=== PATIENT | female | born 1970 | race Caucasian/White ===

== ENCOUNTER 2017-07-15 08:13 | Day surgery (SDC) | payer BC ==
[~2017-07-15] VITALS: Ht 167.6 cm; Wt 64.9 kg
[~2017-07-15 08:13] MED LIST: BUPR10TASR PO; CAMRTAB2 PO; TRAZ50TA11 PO
[2017-07-15] MEDS ORDERED: LR 1,000 ML IV ONE (08:30)
[2017-07-15 08:52] LABS: MEAN CORPUSCULAR HEMOGLOBIN 32.7 pg (27.0-33.0); MEAN CORPUSCULAR HGB CONC 34.3 g/dl (32.0-36.5); MEAN CORPUSCULAR VOLUME 95.5 fl (80.0-96.0); PLATELET COUNT, AUTOMATED 251 10^3/uL (150-450); RED CELL DISTRIBUTION WIDTH 11.5 % (11.5-14.5); WHITE BLOOD COUNT 6.1 10^3/uL (4.0-10.0)
[2017-07-15] MEDS ORDERED: ACETAMINOPHEN 650 MG SUPP PR ONE (09:00)
[2017-07-15 09:07] LABS: CONTROL LINE HCG INT CTR LINE PRESENT
[2017-07-15] MEDS ORDERED: MORPHINE 2 MG/ML 1ML SYRINGE As Ordered ONE (10:06)
[2017-07-15] MEDS ORDERED: MORPHINE 2 MG/ML 1ML SYRINGE IV ONE (10:15)
[2017-07-15] MEDS ORDERED: ACETAMINOPHEN 650 MG SUPP As Ordered ONE (11:15)
[2017-07-15] MEDS ORDERED: BUPIVACAINE/EPIN 0.5% 30 ML VIAL As Ordered ONE (11:15)
[2017-07-15] MEDS ORDERED: PERC5TAB12 PO (11:19)
[2017-07-15] MEDS ORDERED: GLYCOPYRROLATE INJ 0.2 MG/ML 2 ML VIAL As Ordered ONE (11:49)
[2017-07-15] MEDS ORDERED: NEOSTIGMINE 10 MG/10 ML VIAL (J2710) As Ordered ONE (11:49)
[2017-07-15] MEDS ORDERED: PROPOFOL 200 MG/20 ML VIAL As Ordered ONE (11:49)
[2017-07-15] MEDS ORDERED: MIDAZOLAM INJ 2 MG/2 ML VIAL (J2250) As Ordered ONE (11:49)
[2017-07-15] MEDS ORDERED: fentaNYL 250 MCG/5 ML INJECTION (J3010) As Ordered ONE (11:49)
[2017-07-15] MEDS ORDERED: LIDOCAINE 2% INJ 100 MG/5 ML SDV (FOR ANES.) As Ordered ONE (11:49)
[2017-07-15] MEDS ORDERED: dexameTHASONE 4 MG/ML 1ML VIAL (J1100) As Ordered ONE (11:49)
[2017-07-15] MEDS ORDERED: ONDANSETRON 4MG/2ML VIAL (J2405) As Ordered ONE (11:50)
[2017-07-15] MEDS ORDERED: IBUPROFEN 800 MG TAB PO SCH (12:00)
[2017-07-15] MEDS ORDERED: ceFAZolin 1GM INJ (J0690) As Ordered ONE (12:13)
[2017-07-15] MEDS: PERCOCET 5MG/325MG TAB PO PRN ×2 (12:35→13:09)
[2017-07-15] MEDS ORDERED: PERCOCET 5MG/325MG TAB As Ordered ONE ×2 (12:35→13:02)
[2017-07-15] MEDS ORDERED: ONDANSETRON 4MG/2ML VIAL (J2405) IV PRN (13:15)
[2017-07-15] MEDS ORDERED: fentaNYL 100 MCG/2 ML INJECTION (J3010) IV PRN (13:15)
[2017-07-15] MEDS ORDERED: MEPERIDINE INJ 25 MG/ML VIAL (J2175) IV PRN (13:15)
[2017-07-15] MEDS ORDERED: METOCLOPRAMIDE INJ 10MG/2ML VIAL (J2765) IV PRN (13:15)
[2017-07-15] MEDS ORDERED: LR 1,000 ML IV SCH (13:15)
--- NOTE | 2017-07-15 14:08 | RO ---
DATE OF PROCEDURE: 07/15/2017 Dee is a 47-year-old female who had an extensive history of menometrorrhagia and multiparity, desires permanent tubal sterilization. After counseling in the office a decision was made for dilatation and curettage hysteroscopy, NovaSure ablation and endometrial ablation. PREOPERATIVE DIAGNOSES: 1. Multiparity, desires permanent tubal sterilization. 2. Menometrorrhagia. POSTOPERATIVE DIAGNOSES 1. Multiparity, desires permanent tubal sterilization. 2. Menometrorrhagia. PROCEDURE: 1. Laparoscopic bilateral tubal ligation using Filshie clip. 2. Dilatation and curettage hysteroscopy. 3. NovaSure endometrial ablation. SURGEON: Eduardo Lipscomb DO CHANCELLOR: ANESTHESIA: General. COMPLICATIONS: None. ESTIMATED BLOOD LOSS: Less than 20 mL. SPECIMEN SENT TO LAB: Endometrial curetting. PROCEDURE: After obtaining informed consent the patient was taken to the operating room where general anesthetic was found to be adequate. She was then draped and prepped usual sterile fashion in dorsal lithotomy position. At this point, a straight cath of the bladder was performed for approximately 250 mL of clear urine. We then placed a sponge stick in the vagina. Attention was then turned to the abdomen where a 5 mm infraumbilical incision was made. Using the Veress needle, the abdomen was insufflated with CO2 gas to approximately 3.5 liters. We then placed a 5 mm XCEL trocar as well as the laparoscope. After proper placement of that trocar, we then placed an 8 mm port under direct visualization on the right. The fallopian tubes were identified. The patient was placed in steep Trendelenburg and a Filshie clip was then applied approximately 2-3 cm away from the cornual area in each tube. After proper placement of the tubes, the pelvis was copiously irrigated with normal saline and suctioned out. We then turned our attention to the vagina where a weighted speculum was placed. Using a Schmidt retractor, the anterior lip of the cervix was then grasped with a single-tooth tenaculum. The uterus was sound to approximately this 8 cm in size giving a cavity length of 5. The cervix was serially dilated and the hysteroscope inserted. Normal appearing endometrial cavity noted with bilateral tubal ostia visualized. At this point, the hysteroscope was removed, the NovaSure device was inserted. A cavity test was done. After passing the cavity test, the device was enabled and the endometrial ablation was then started. The cycle lasted approximately 62 seconds. Good ablative process noted. All instruments removed. The laparoscopic ports were closed using DERMABOND, 0.5% Marcaine was placed at the operative site for postoperative pain. The patient tolerated procedure well. She was then transferred to the recovery room in stable condition.
[2017-07-15 15:00] VITALS: BP 135/69
== END 2017-07-15 15:22 | disposition home or self-care (01) ==
LOC: M SDC 08:13
PROVIDERS: ATTEND Obstetrics & Gynecology
DX: Z30.2 Encounter for sterilization (principal); N92.1 Excessive and frequent menstruation with irregular cycle; F32.9 Major depressive disorder, single episode, unspecified; M54.2 Cervicalgia; Z79.899 Other long term (current) drug therapy
CPT/HCPCS: 36415; 58563; 58671; 84703; 85027; 86850; 86900; 86901; 88305; A4649; J0690; J1100; J2250; J2405; J2710; J3010

== ENCOUNTER → 2018-03-13 | Outpatient (CLI) | payer BC ==
[2018-03-13 13:01] LABS: BASO # 0.1 10^3/uL (0.0-0.2); BASO % 1.7 % (0.0-1.0); EOS # 0.2 10^3/uL (0.0-0.50); HEMATOCRIT 40.3 % (36.0-47.0); HEMOGLOBIN 13.7 g/dl (12.0-15.5); LYMPH % 40.6 % (24.0-44.0); MEAN CORPUSCULAR HEMOGLOBIN 32.8 pg (27.0-33.0); MEAN CORPUSCULAR VOLUME 96.4 fl (80.0-96.0); MONO # 0.4 10^3/uL (0.0-0.8); MONO % 9.2 % (0.0-5.0); NEUTROPHILS # 2.1 10^3/uL (1.8-7.7); NEUTROPHILS % 43.5 % (36.0-66.0); PLATELET COUNT, AUTOMATED 216 10^3/uL (150-450); RED BLOOD COUNT 4.18 10^6/uL (4.00-5.40); RED CELL DISTRIBUTION WIDTH 11.4 % (11.5-14.5); WHITE BLOOD COUNT 4.8 10^3/uL (4.0-10.0)
[2018-03-13 13:22] LABS: ALBUMIN 3.8 GM/DL (3.2-5.2); ALBUMIN/GLOBULIN RATIO 1.27 (1.00-1.93); ALKALINE PHOSPHATASE 111 U/L (45-117); ALT/SGPT 27 U/L (12-78); ANION GAP 7 MEQ/L (8-16); AST/SGOT 15 U/L (7-37); BILIRUBIN,TOTAL 0.5 MG/DL (0.2-1.0); BLOOD UREA NITROGEN 12 MG/DL (7-18); CALCIUM LEVEL 8.7 MG/DL (8.5-10.1); CARBON DIOXIDE LEVEL 30 MEQ/L (21-32); CHLORIDE LEVEL 109 MEQ/L (98-107); CHOLESTEROL LEVEL 191 MG/DL (<200); CHOLESTEROL RISK RATIO 2.273 (<5); CREATININE FOR GFR 0.88 MG/DL (0.55-1.30); GLOMERULAR FILTRATION RATE > 60.0 (>58); GLUCOSE, FASTING 85 MG/DL (70-100); HDL CHOLESTEROL 84 MG/DL (>40); LDL CHOLESTEROL 94.4 MG/DL (<100); NON-HDL-C 107 MG/DL; POTASSIUM SERUM 4.2 MEQ/L (3.5-5.1); SODIUM LEVEL 146 MEQ/L (136-145); TOTAL PROTEIN 6.8 GM/DL (6.4-8.2); TRIGLYCERIDES LEVEL 63 MG/DL (<150)
[2018-03-13 13:32] LABS: ERYTHROCYTE SEDIMENTATION RATE 3 mm/hr (0-20)
== END ==
LOC: M ADAMS 08:14
DX: M54.2 Cervicalgia (principal); M25.532 Pain in left wrist; M12.9 Arthropathy, unspecified; E55.9 Vitamin D deficiency, unspecified; Z00.00 Encounter for general adult medical examination without abnormal findings
CPT/HCPCS: 84443

== ENCOUNTER → 2019-06-14 | Outpatient (REF) ==
[~2019-06-14] MED LIST changes: +PERC5TAB12 PO; +TRAZ-252 PO; -TRAZ50TA11 PO
[2019-06-15 09:49] LABS: RUBELLA IgG QUALITATIVE IMMUNE (IMMUNE)
== END ==
LOC: M LAB 09:50
PROVIDERS: ATTEND Nurse Practitioner Adult Health
DX: Z00.00 Encounter for general adult medical examination without abnormal findings (principal)

== ENCOUNTER → 2020-02-14 | Outpatient (CLI) | payer BC ==
[2020-02-14 07:58] LABS: ALBUMIN 3.8 GM/DL (3.2-5.2); ALT/SGPT 27 U/L (12-78); BILIRUBIN,TOTAL 0.8 MG/DL (0.2-1.0); BLOOD UREA NITROGEN 12 MG/DL (7-18); CALCIUM LEVEL 9.5 MG/DL (8.5-10.1); CARBON DIOXIDE LEVEL 30 MEQ/L (21-32); CHLORIDE LEVEL 106 MEQ/L (98-107); CHOLESTEROL LEVEL 166 MG/DL (<200); CHOLESTEROL RISK RATIO 2.441 (<5); CREATININE FOR GFR 0.84 MG/DL (0.55-1.30); GLOMERULAR FILTRATION RATE > 60.0 (>51); GLUCOSE, FASTING 95 MG/DL (70-100); HDL CHOLESTEROL 68 MG/DL (>40); LDL CHOLESTEROL 88 MG/DL (<100); NON-HDL-C 98 MG/DL; POTASSIUM SERUM 5.2 MEQ/L (3.5-5.1); SODIUM LEVEL 139 MEQ/L (136-145); TRIGLYCERIDES LEVEL 48 MG/DL (<150)
== END ==
LOC: M LAB 07:03
PROVIDERS: ATTEND Physician Assistant Medical
DX: Z00.00 Encounter for general adult medical examination without abnormal findings (principal)

== ENCOUNTER 2020-12-05 10:27 | Day surgery (SDC) | payer BC ==
[~2020-12-05] VITALS: Ht 167.6 cm; Wt 62.6 kg
[~2020-12-05 10:27] MED LIST changes: +C-251TAB PO; +EQLTAB93 PO; +MULT-90 PO; +NS 1,000 ML IV ONE
[2020-12-05] MEDS ORDERED: propofoL 200 MG/20 ML VIAL As Ordered ONE (11:28)
[2020-12-05] MEDS ORDERED: LIDOCAINE 2% 100MG/5ML SDV (FOR ANES.) As Ordered ONE (11:28)
[2020-12-05] MEDS ORDERED: PHENYLephrine 500MCG 5ML (100MCG/ML) SYRINGE As Ordered ONE (11:49)
--- NOTE | 2020-12-05 12:08 | ROOR ---
Patient Name: Dee Nicole Procedure Date: 12/05/2020 11:37 AM Date of : 1970 Age: 50 Room: [facility] Gender: Female Note Status: Finalized Procedure: Colonoscopy Indications: Screening for colorectal malignant neoplasm Providers: Rom Saleh MD Referring MD: Paula Sr MD Requesting Provider: Medicines: Monitored Anesthesia Care Complications: No immediate complications. Procedure: Pre-Anesthesia Assessment: - Prior to the procedure, a History and Physical was performed, and patient medications and allergies were reviewed. The patient is competent. The risks and benefits of the procedure and the sedation options and risks were discussed with the patient. All questions were answered and informed consent was obtained. Patient identification and proposed procedure were verified by the physician, the nurse and the anesthesiologist in the endoscopy suite. Mental Status Examination: alert and oriented. Airway Examination: normal oropharyngeal airway and neck mobility. Respiratory Examination: clear to auscultation. CV Examination: normal. Prophylactic Antibiotics: The patient does not require prophylactic antibiotics. Prior Anticoagulants: The patient has taken no previous anticoagulant or antiplatelet agents. ASA Grade Assessment: II - A patient with mild systemic disease. After reviewing the risks and benefits, the patient was deemed in satisfactory condition to undergo the procedure. The anesthesia plan was to use monitored anesthesia care (MAC). Immediately prior to administration of medications, the patient was re-assessed for adequacy to receive sedatives. The heart rate, respiratory rate, oxygen saturations, blood pressure, adequacy of pulmonary ventilation, and response to care were monitored throughout the procedure. The physical status of the patient was re-assessed after the procedure. The Colonoscope was introduced through the anus and advanced to the cecum, identified by appendiceal orifice and ileocecal valve. The colonoscopy was somewhat difficult due to a tortuous colon. The patient tolerated the procedure well. The quality of the bowel preparation was good. Findings: The perianal and digital rectal examinations were normal. The colon (entire examined portion) appeared normal. The retroflexed view of the distal rectum and anal verge was normal and showed no anal or rectal abnormalities. Impression: - The entire examined colon is normal. - The distal rectum and anal verge are normal on retroflexion view. - No specimens collected. Recommendation: - Discharge patient to home (ambulatory). - Repeat colonoscopy in 10 years for screening purposes. Procedure Code(s): --- Professional --- 14756, Colonoscopy, flexible; diagnostic, including collection of specimen(s) by brushing or washing, when performed (separate procedure) Diagnosis Code(s): --- Professional --- Z12.11, Encounter for screening for malignant neoplasm of colon CPT copyright 2019 [employer]. All rights reserved. The codes documented in this report are preliminary and upon acoustic engineer review may be revised to meet current compliance requirements. Rom Saleh MD Rom Saleh MD 12/05/2020 12:07:54 PM Electronically signed by Rom Saleh MD Number of Addenda: 0 Note Initiated On: 12/05/2020 11:37 AM Estimated Blood Loss: Estimated blood loss: none.
[2020-12-05 12:45] VITALS: BP 125/68
== END 2020-12-05 12:53 | disposition home or self-care (01) ==
LOC: M OPP 10:27
PROVIDERS: ATTEND Surgery
DX: Z12.11 Encounter for screening for malignant neoplasm of colon (principal); Z79.899 Other long term (current) drug therapy
CPT/HCPCS: 45378; J2370

== ENCOUNTER 2024-05-04 09:33 | Emergency (ER) | payer BC ==
[~2024-05-04] VITALS: Ht 167.6 cm; Wt 61.4 kg
[~2024-05-04 09:33] MED LIST changes: -NS 1,000 ML IV ONE
[2024-05-04] MEDS ORDERED: IBUP80TA (09:45)
[2024-05-04] MEDS ORDERED: BUPR450T4 PO (09:45)
[2024-05-04] MEDS ORDERED: CYCL-707 PO (09:45)
[2024-05-04] MEDS ORDERED: GABA-1171 PO (09:45)
[2024-05-04 10:14] LABS: BASO # 0.1 10^3/uL (0.0-0.2); BASO % 1.1 % (0.0-1.0); EOS # 0.1 10^3/uL (0.0-0.5); EOS % 1.4 % (0.0-3.0); HEMATOCRIT 42.4 % (36.0-47.0); LYMPH # 1.7 10^3/uL (1.5-5.0); LYMPH % 25.8 % (24.0-44.0); MEAN CORPUSCULAR HEMOGLOBIN 32.4 pg (27.0-33.0); MEAN CORPUSCULAR VOLUME 98.1 fl (80.0-96.0); MONO # 0.5 10^3/uL (0.0-0.8); MONO % 7.9 % (2.0-8.0); NEUTROPHILS # 4.1 10^3/uL (1.5-8.5); NEUTROPHILS % 63.5 % (36.0-66.0); PLATELET COUNT, AUTOMATED 241 10^3/uL (150-450); RED BLOOD COUNT 4.32 10^6/uL (4.00-5.40); WHITE BLOOD COUNT 6.4 10^3/uL (4.0-10.0)
[2024-05-04 10:41] LABS: BLOOD UREA NITROGEN 22 MG/DL (9-23); CALCIUM LEVEL 9.8 MG/DL (8.5-10.1); CARBON DIOXIDE LEVEL 34 MMOL/L (20-31); CHLORIDE LEVEL 103 MMOL/L (98-107); CREATININE FOR GFR 0.89 MG/DL (0.55-1.30); GLOMERULAR FILTRATION RATE > 60.0 (>51); GLUCOSE, FASTING 79 MG/DL (60-100); POTASSIUM SERUM 4.7 MMOL/L (3.5-5.1); SODIUM LEVEL 139 MMOL/L (136-145)
[2024-05-04 10:43] LABS: THYROID STIMULATING HORMONE 0.777 uIU/ML (0.55-4.78)
[2024-05-04] MEDS ORDERED: ISOVUE-370 76% 100ML VIAL As Ordered ONE (10:55)
[2024-05-04] MEDS: diazePAM 10MG/2ML SYRINGE IV ONE (11:15)
[2024-05-04] MEDS: KETOROLAC 30 MG/ML 1ML VIAL IV ONE (11:15)
[2024-05-04] MEDS: dexAMETHasone 20MG/5ML VIAL IV ONE (11:15)
[2024-05-04] MEDS: fentaNYL 100 MCG/2 ML INJECTION IV ONE ×2 (12:37→13:50)
[2024-05-04] MEDS ORDERED: HOME MED LIST COMPLETE! XX SCH (13:00)
[2024-05-04] MEDS ORDERED: PILL CUTTER 1 EACH XX ONE (16:34)
[2024-05-04] MEDS: HYDROmorphone 2 MG TAB PO ONE (16:37)
[2024-05-04 17:45] VITALS: BP 130/84
[2024-05-04] MEDS ORDERED: OXYC10TA3 PO ×2 (17:46→19:37)
[2024-05-04] MEDS ORDERED: ZANA2CAP PO ×2 (17:46→19:37)
[2024-05-04] MEDS ORDERED: MEDR4PAK PO ×2 (17:46→19:37)
[2024-05-04 17:50] VITALS: TEMP 97.8
[2024-05-04 18:05] VITALS: O2SAT 98
== END 2024-05-04 18:20 | disposition home or self-care (01) ==
LOC: M ED 09:33
DX: R55 Syncope and collapse (principal); M54.12 Radiculopathy, cervical region; F32.A Depression, unspecified; F10.10 Alcohol abuse, uncomplicated; Z79.810 Long term (current) use of selective estrogen receptor modulators (SERMs); Z79.899 Other long term (current) drug therapy
CPT/HCPCS: 70450; 70496; 70498; 72141; 80048; 84443; 85025; 93005; 93041; 94760; 96374; 96375; 96376; 99285; J1100; J1885; J3010; J3360; Q9967